=== PATIENT | male | born 1995 | race Caucasian/White ===

== ENCOUNTER 2017-04-24 09:56 | Emergency (ER) | payer OTHER ==
[2017-04-24 10:03] VITALS: BP 134/74
[2017-04-24] MEDS ORDERED: AMOX/CLAV 875 MG/125 MG TABLET PO STA (11:14)
--- NOTE | 2017-04-24 11:21 | ED Physician Documentation ---
PD HPI HEADACHE - Stated complaint Stated Complaint: EAR PX - Chief complaint Chief Complaint: Heent - History obtained from History obtained from: Patient - Additional information Additional information: THIS PATIENT is a 21-year-old man with a history of recurrent otitis media presents with right ear pain for the past couple days. He is also had ear nose and throat symptoms as well. He complains of otalgia of the right ear that is moderate in intensity. Review of systems: For pertinent positive and negatives in the review of systems please see the history of present illness, otherwise all other systems have been reviewed and are negative. Dragon disclaimer: Parts of this medical record were created using voice recognition technology. Because of the inherent limitations of this system, occasional same sounding word substitutions do occur and persist despite proofreading. Please read the document for context. Review of Systems Constitutional: denies: Fever, Chills PD PAST MEDICAL HISTORY - Past Medical History Past Medical History: No - Past Surgical History Past Surgical History: No - Present Medications Home Medications: Ambulatory Orders Medication Instructions Recorded Confirmed Amox/Clav 875/125 [Augmentin] 1 each PO Q12H #14 tablet 04/24/17 Tramadol HCl 50 mg PO Q8HR PRN #14 tablet 04/24/17 - Allergies Allergies/Adverse Reactions: Allergies Allergy/AdvReac Type Severity Reaction Status Date / Time No Known Drug Allergies Allergy Verified 04/24/17 10:03 - Social History Does the pt smoke?: Yes Smoking Status: Current every day smoker Does the pt drink ETOH?: Yes - Immunizations Immunizations are current?: Yes PD ED PE NORMAL - Vitals Vital signs reviewed: Yes - General General: Alert and oriented X 3, No acute distress, Well developed/nourished - HEENT HEENT: Atraumatic, PERRL, Other (Right tympanic membrane is erythematous and tense with fluid behind it. The external auditory canal pinna, and tragus are normal. There is no evidence of mastoiditis) - Neck Neck: Supple, no meningeal sign - Respiratory Respiratory: No respiratory distress - Derm Derm: Normal color - Neuro Neuro: Alert and oriented X 3 - Psych Psych: Normal mood, Normal affect Results - Vitals Vitals: Vital Signs - 24 hr 04/24/17 10:00 Temperature 36.5 C Heart Rate 84 Respiratory 14 Rate Blood Pressure 134/74 H O2 Saturation 99 Oxygen O2 Source Room air PD MEDICAL DECISION MAKING - ED course ED course: Uncomplicated otitis media in adults with a history of recurrent otitis media. He has seen the ear nose and throat physician in the past and he was told that he should outgrow these infections. Disposition: To home Clinical impression: 1. Right-sided acute otitis media suppurative Departure - Departure Disposition: Home, Self Care Clinical Impression: Otitis media Qualifiers: Otitis media type: suppurative Chronicity: acute Laterality: right Recurrence: recurrent Spontaneous tympanic membrane rupture: without spontaneous rupture Qualified Code(s): H66.004 - Acute suppurative otitis media without spontaneous rupture of ear drum, recurrent, right ear Condition: Good Instructions: ED Otitis Media Acute Adult Prescriptions: Tramadol HCl 50 mg PO Q8HR PRN #14 tablet PRN Reason: Pain Amox/Clav 875/125 [Augmentin] 1 each PO Q12H #14 tablet
[2017-04-24] MEDS ORDERED: AMOX/CLAV 875 MG/125 MG TABLET PO ONE (11:22)
[2017-04-24] MEDS ORDERED: ACETAMINOPHEN 325 MG TABLET PO STA (11:22)
[2017-04-24] MEDS ORDERED: ACETAMINOPHEN 325 MG TABLET PO ONE (11:23)
== END 2017-04-24 11:23 | disposition home or self-care (01) ==
LOC: ED 09:56
DX: H66.004 Acute suppurative otitis media without spontaneous rupture of ear drum, recurrent, right ear (principal); R50.9 Fever, unspecified
CPT/HCPCS: 99282; 99283; A9270

== ENCOUNTER 2019-07-30 09:02 | Outpatient (CLI) | payer OTHER ==
[2019-07-30 12:57] VITALS: BP 123/70
--- NOTE | 2019-07-30 12:57 | SLEEP CARE CONSULTATION ---
Information from patient questionnaire entered by Solange Monterroso. I have reviewed and concur with the information entered by Solange Monterroso. This document represents the service I personally performed and the decisions made by me, Stephanie Trinh MD, [facility]. History of Present Illness Reason for Visit: New patient Chief Complaint: reports: Snoring, Fatigue, Other (sleep talking, startles) Usual bedtime: 5590-5248 Time it takes to fall asleep: 15-60 minutes Snores at night: Yes Observed to quit breathing while asleep: Yes Sleeps alone due to snoring: Yes Reasons for waking at night: reports: Snoring Toss, Turn, or Twitch while sleeping: Yes Recalls having dreams: No Usually gets out of bed at: [id number] Feels refreshed in the morning: No Morning headache: No Sleepy or fatigued during the day: Yes Ever fallen asleep while driving: Yes Takes day naps: Yes Dreams during day naps: No Prior sleep studies: No Additional HPI information: I had the pleasure of seeing Deputy today regarding the possibility of him having a sleep disorder. As you know, he is a 24 year old gentleman who complains of loud snore, persistent fatigue, waking up startled, and sleep talking. The patient tells me that he normally goes to bed around 9:30 - 10 pm, and it takes him approximately 15 - 60 minutes to fall asleep. He has been told that he snores loudly and irregularly at night. He has never been observed to stop breathing in his sleep. His bed partner occasionally has to sleep in a separate room. He can recall waking up on the average of 1 - 2 times during the night. Most of the time he wakes up because of dreams. He has awakened occasionally because of his own snoring, but not choking, and having to gasp for air. There is a lot of tossing and turning in his sleep. He reports both somniloquy (sleep talking) and somnambulism (sleep walking). The only injuries he has had are walking into the closet door or bathroom door. Generally he can recall having dreams. In the morning he usually gets up out of the bed around 5:30 - 6 a.m. not feeling refreshed nor rested. He usually does not have a morning headache. During the day he complains of feeling sleepy and fatigued. His score on [place] Sleepiness Scale is 13 out of 24. He has fallen asleep while driving and has gone out of the tiburcio. He usually takes naps during the day. Upon falling asleep during the day he denies having vivid dreams. He has never had sleep paralysis, experienced cataplexy or symptoms of restless leg syndrome. He denies having impaired concentration during the day. 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 Patient is and lives in [place]. Have you smoked in the past 12 months: Yes Cigarettes per day (20/pack): 5 Years of smokin Smoking Pack Years: 0.6 Alcohol use: Yes Alcohol amount and frequency: 1-2/week Caffeine use: Yes Caffeine amount and frequency: 1 coffee Family History Family history of sleep disordered breathing: Yes Family Hx Sleep Apnea: Mother: Snoring, Father: Snoring Allergies and Home Medications Drug allergies reviewed: Yes (amoxicillin) Home medication list reviewed: Yes Review of Systems Cardiovascular: denies: high blood pressure, palpitations, chest pain, irregular heart rate or pulse, leg or foot swelling, have to sleep sitting up, other Respiratory: denies: shortness of breath, wheeze, sputum production, chronic cough, other Gastrointestinal: denies: heartburn, difficulty swallowing, nausea, vomitting, diarrhea, abdominal pain, other Urinary: denies: incontinence, frequency, urgency, impotence, other Neurological: denies: headaches, seizure, head trauma, disorientation, speech dysfunction, gait or balance problems, fainting or unconsciousness, other Psychiatric: denies: Attention Deficit Hyperactivity, anxiety, depression, mood disorder, claustrophobia, other Ear/Nose/Throat: reports: sinus problems, wisdom teeth removed Endocrine: denies: thyroid disease, history of goiter, sluggishness, too hot or cold, excessive thirst, increased appetite, increased urination, unexplained weakness, other Musculoskeletal: reports: back pain Immunologic: denies: sneezing, rash, itching, allergies to food or environment, other Physical Exam Vital signs obtained and entered by: Dr. Nikomborirak Blood Pressure: 123/70 Cuff size: regular Heart Rate: 80 O2 Saturation: 95 Height: 6 ft 1 in Weight: 190 lb Body Mass Index: 25.0 BMI Classification: Overweight Neck circumference: 16 HEENT: No craniofacial malformation Nostrils: patent to airflow Turbinates: normal Septum: midline Mouth and throat: normal Soft palate: normal Hard palate: normal Uvula: normal Uvula visualization: 100% Mallampati Class I Tongue: normal in size Tonsils: small Chin and jaw: normal size and position Neck: normal w/o lymphadenopathy or thyromegaly Heart: regular rate and rhythm Lungs: clear bilaterally Abdomen: soft, non-tender Extremities: no edema or clubbing Neurologic: intact, no focal deficits Impression and Plan IMPRESSION: 1. Suspected Obstructive Sleep Apnea-Hypopnea Syndrome, as suggested by history of loud and irregular snoring, unrefreshed sleep, and daytime hypersomnolence. Pathophysiology of sleep-disordered breathing was discussed. I recommend proceeding to polysomnography to confirm the diagnosis and to assess severity. If he has significant sleep disordered breathing, a manual CPAP titration study will also be performed to find the optimal treatment pressure. I informed the patient of what the sleep studies involve and after some discussion, he agreed to proceed. 2. 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 This is not too abnormal because he may grow out of it. So far, it has not caused serious injuries. No treatment is necessary at this time. The in-laboratory polysomnography will be performed with parasomnia montage to pick up driver arm movement during sleep as well. Plan: 1. Schedule polysomnography 2. Avoid long distance driving or when feeling sleepy. 3. Avoid alcohol, sedative and muscle relaxant around bedtime. 4. Return in 1 to 2 weeks after the study to discuss results and initiate therapy. I spent 100% of this 20 minute visit face to face with the patient with greater than 50% of this was spent time counseling the patient and coordination of care.
== END 2019-07-30 09:03 | disposition home or self-care (01) ==
LOC: SC 09:02
PROVIDERS: ATTEND Internal Medicine Pulmonary Disease
DX: R06.83 Snoring (principal); G47.8 Other sleep disorders; G47.10 Hypersomnia, unspecified; F51.3 Sleepwalking [somnambulism]
CPT/HCPCS: 99203; 99212

== ENCOUNTER 2019-08-17 20:34 | Outpatient (CLI) | payer OTHER | END 2019-08-17 20:35 | disposition home or self-care (01) | LOC: SC 20:34 | PROVIDERS: ATTEND Internal Medicine Pulmonary Disease | DX: R06.83 Snoring (principal); R53.83 Other fatigue | CPT/HCPCS: 95810 ==

== ENCOUNTER 2019-09-10 08:51 | Outpatient (CLI) | payer OTHER ==
--- NOTE | 2019-09-10 09:41 | SLEEP CARE CONSULTATION ---
Information from patient questionnaire entered by Isi Bee. I have reviewed and concur with the information entered by Isi Bee. This document represents the service I personally performed and the decisions made by me, Stephanie Trinh MD, [facility]. History of Present Illness Initial [place] Sleepiness Scale score: 13 Current [place] Sleepiness Scale score: 9 Additional HPI information: HPI: Mr. Guerrero returned for follow up of the sleep study he had on 08/17/2019. The polysomnography showed that the patient had normal sleep efficiency. The sleep architecture was normal as well. Respiratory monitoring showed no significant sleep disordered breathing (AHI = 2.9) or hypoxia (shala oxygen saturation of 90%). The few respiratory events occurred mainly during non-supine sleep (supine AHI = 1.6; non-supine = 3.62). Snore was intermittent but loud in intensity. There was no significant periodic leg movement of sleep. Cardiac rhythm was normal sinus rhythm without significant arrhythmia. No abnormal behavior (parasomnia) observed during the night. The patient was informed of these findings. I explained to him that his complaint of fatigue is not explained by sleep disrupting conditions. Allergies and Home Medications Drug allergies reviewed: Yes Home medication list reviewed: Yes Review of Systems Review of systems same as previous: Yes Physical Exam Height: 5 ft 11 in Weight: 190 lb Body Mass Index: 26.4 BMI Classification: Overweight Impression and Plan IMPRESSION: 1. Fatigue, not explained by sleep disrupting conditions. For further workup, the patient should follow up with his primary care provider. PLAN: 1. Follow up with primary care provider. 2. Return to the sleep clinic on as needed basis. I spent 100% of this visit face to face with the patient with greater than 50% of this was spent time counseling the patient and coordination of care.
== END 2019-09-10 08:52 | disposition home or self-care (01) ==
LOC: SC 08:51
PROVIDERS: ATTEND Internal Medicine Pulmonary Disease
DX: R06.83 Snoring (principal); R53.83 Other fatigue
CPT/HCPCS: 99212; 99213